=== PATIENT | female | born 1990 | race Caucasian/White ===

== ENCOUNTER 2017-07-21 17:30 | Inpatient (IN) | payer BC ==
[~2017-07-21] VITALS: Ht 152.4 cm; Wt 74.4 kg
[2017-07-21] MEDS ORDERED: OXYTOCIN/NORMAL SALINE 1,000 ML IV SCH (19:49)
[2017-07-21] MEDS ORDERED: LR 1,000 ML IV ONE (19:49)
[2017-07-21] MEDS ORDERED: TERBUTALINE SULFATE 1 MG/ML VIAL SUBCUT ONE (20:00)
[2017-07-21] MEDS ORDERED: NALBUPHINE HCL 10 MG/ML AMP IVP PRN (20:00)
[2017-07-21 20:40] LABS: HEMOGLOBIN 13.1 g/dL (12.0-16.0)
[2017-07-21 20:48] LABS: HEMATOCRIT 38.8 % (36-48); MEAN CORPUSCULAR HEMOGLOBIN 31 pg (27-31); MEAN CORPUSCULAR HGB CONC 34 % (32-36); MEAN CORPUSCULAR VOLUME 90 fL (79.0-98.0); PLATELET COUNT (AUTO) 198 K/uL (130-430); RED CELL DISTRIBUTION WIDTH 11.6 % (9.0-15.0); WHITE BLOOD COUNT (AUTO) 9.1 K/uL (4.8-10.8)
[2017-07-21 21:02] LABS: BAND % (MANUAL) 0 % (0-6); LYMPHOCYTES % (MANUAL) 12 % (20-46); MONOCYTES % (MANUAL) 4 % (0-11)
[2017-07-21 21:03] LABS: BASOPHILS % (MANUAL) 0 % (0-2); EOSINOPHILS % (MANUAL) 2 % (0-7)
[2017-07-21 21:46] VITALS: BP_SYST 122
[2017-07-21] MEDS: LR 1,000 ML IV SCH (22:27)
[2017-07-22] MEDS: LR 1,000 ML IV SCH (05:56)
[2017-07-22] MEDS ORDERED: FENT2mCg/mL-ROPIVA0.2%/NS EPID 150 ML EP ONE (10:45)
[2017-07-22] MEDS ORDERED: LR 500 ML IV ONE (11:29)
[2017-07-22] MEDS ORDERED: FENT2mCg/mL-ROPIVA0.2%/NS EPID 150 ML EP SCH (11:30)
[2017-07-22] MEDS ORDERED: ePHEDrine sulfate 50 MG/ML VIAL IVP PRN (11:30)
[2017-07-22] MEDS ORDERED: OXYTOCIN/NORMAL SALINE 1,000 ML IV ONE (18:17)
[2017-07-22] MEDS ORDERED: OXYTOCIN/NORMAL SALINE 1,000 ML IV SCH (18:17)
[2017-07-22] MEDS ORDERED: LANOLIN 7 GM OINT. TP PRN (18:30)
[2017-07-22] MEDS ORDERED: OXYCODONE/ACETAMINOPHEN 5-325 TABLET PO PRN ×2 (18:30)
[2017-07-22] MEDS ORDERED: MEASLES,MUMPS&RUBELLA VACC/PF 12500 UNIT/0.5 ML VIAL SUBQ PRN (18:30)
[2017-07-22] MEDS ORDERED: HYDROCORTISONE 0.5%, 28.35 GM TOPICAL CREAM TP PRN (18:30)
[2017-07-22] MEDS ORDERED: GLYCERIN/WITCH HAZEL (TUCKS PADS) TP PRN (18:30)
[2017-07-22] MEDS ORDERED: DERMOPLAST SPRAY TP PRN (18:30)
[2017-07-22] MEDS ORDERED: METHYLERGONOVINE MALEATE 0.2 MG TABLET PO PRN (18:30)
[2017-07-22] MEDS ORDERED: RHO(D) IMMUNE GLOBULIN/MALTOSE 1500 UNITS/1.3 ML (WINHRO) IM PRN (18:30)
[2017-07-22] MEDS ORDERED: SENNOSIDES/DOCUSATE SODIUM 1 TAB TABLET(SENOKOT-S) PO PRN (18:30)
[2017-07-22] MEDS ORDERED: TEMAZEPAM 15 MG CAPSULE PO PRN (21:00)
[2017-07-22] MEDS: IBUPROFEN 600 MG TABLET PO SCH (23:42)
[2017-07-23] MEDS: IBUPROFEN 600 MG TABLET PO SCH ×2 (05:21→17:16)
[2017-07-23] MEDS: DOCUSATE SODIUM 100 MG CAPSULE PO PRN (05:21)
[2017-07-23 06:32] LABS: BASOPHILS % (AUTO) 0.2 % (0.0-2.0); EOSINOPHILS # (AUTO) 0.1 K/uL (0.0-0.4); EOSINOPHILS % (AUTO) 0.9 % (0.0-4.0); HEMATOCRIT 31.3 % (36-48); HEMOGLOBIN 10.6 g/dL (12.0-16.0); LYMPHOCYTES # (AUTO) 1.5 K/uL (1.0-5.5); LYMPHOCYTES % (AUTO) 10.6 % (20.5-51.5); MEAN CORPUSCULAR HEMOGLOBIN 31 pg (27-31); MEAN CORPUSCULAR HGB CONC 34 % (32-36); MEAN CORPUSCULAR VOLUME 91 fL (79.0-98.0); MONOCYTES # (AUTO) 0.9 K/uL (0.0-1.0); MONOCYTES % (AUTO) 6.4 % (1.7-9.3); NEUTROPHILS # (AUTO) 12.1 K/uL (1.8-7.7); PLATELET COUNT (AUTO) 171 K/uL (130-430); RED BLOOD CELL COUNT(AUTO) 3.45 MIL/uL (4.2-6.2); RED CELL DISTRIBUTION WIDTH 12.2 % (9.0-15.0); WHITE BLOOD COUNT (AUTO) 14.6 K/uL (4.8-10.8)
[2017-07-23 12:01] LABS: NEUTROPHILS % (AUTO) 81.9 % (40.0-70.0)
[2017-07-23] MEDS: ANUSOL 1 EA SUPP.RECT (PREPARATION H) RC PRN (20:53)
[2017-07-24] MEDS: IBUPROFEN 600 MG TABLET PO SCH ×5 (00:14→23:14)
[2017-07-24] MEDS: DOCUSATE SODIUM 100 MG CAPSULE PO PRN ×2 (06:50→17:40)
[2017-07-24] MEDS: ANUSOL 1 EA SUPP.RECT (PREPARATION H) RC PRN ×2 (06:55→17:40)
[2017-07-24] MEDS ORDERED: MINERAL OIL 30 ML UDC PO ONE (23:21)
== END 2017-07-24 23:22 | disposition home or self-care (01) | DRG 775 ==
LOC: SPU 17:30 → OBSVTOIN 19:50
PROVIDERS: ADMIT Obstetrics & Gynecology; ATTEND Obstetrics & Gynecology
PROC: 10907ZC Drainage of Amniotic Fluid, Therapeutic from Products of Conception, Via Natural or Artificial Opening (ICD-10-PCS; principal; 2017-07-21)
PROC: 10E0XZZ Delivery of Products of Conception, External Approach (ICD-10-PCS; 2017-07-21)
PROC: 0KQM0ZZ Repair Perineum Muscle, Open Approach (ICD-10-PCS; 2017-07-21)
PROC: 3E0R3BZ Introduction of Anesthetic Agent into Spinal Canal, Percutaneous Approach (ICD-10-PCS; 2017-07-21)
PROC: 00HU33Z Insertion of Infusion Device into Spinal Canal, Percutaneous Approach (ICD-10-PCS; 2017-07-21)
PROC: 3E0P3VZ Introduction of Hormone into Female Reproductive, Percutaneous Approach (ICD-10-PCS; 2017-07-21)
DX: O69.81X0 Labor and delivery complicated by cord around neck, without compression, not applicable or unspecified (principal); O70.1 Second degree perineal laceration during delivery; Z3A.38 38 weeks gestation of pregnancy; Z37.0 Single live birth
CPT/HCPCS: 36415; 76815; 81002-TC; 85007; 85025; 85027; 86592; 86886; 86900; 86901; G0378; J2300; J2590; J3010; J7120

== ENCOUNTER 2019-03-15 16:09 | Inpatient (IN) | payer BC ==
[~2019-03-15] VITALS: Ht 152.4 cm; Wt 78.9 kg
[2019-03-15] MEDS ORDERED: OXYTOCIN/0.9 % SODIUM CHLORIDE 1,000 ML IV SCH ×2 (16:46→18:48)
[2019-03-15] MEDS ORDERED: LR 1,000 ML IV ONE (16:46)
[2019-03-15] MEDS ORDERED: NALBUPHINE HCL 10 MG/ML AMP IVP PRN (17:00)
[2019-03-15] MEDS ORDERED: TERBUTALINE SULFATE 1 MG/ML VIAL SUBCUT ONE (17:00)
[2019-03-15] MEDS: LR 1,000 ML IV SCH ×3 (17:00→20:54)
[2019-03-15] MEDS ORDERED: FENT2mCg/mL-ROPIVA0.2%/NS EPID 150 ML EP SCH (17:30)
[2019-03-15 17:32] LABS: BASOPHILS # (AUTO) 0.1 K/uL (0.0-0.2); BASOPHILS % (AUTO) 1.1 % (0.0-2.0); EOSINOPHILS # (AUTO) 0.1 K/uL (0.0-0.4); EOSINOPHILS % (AUTO) 0.9 % (0.0-4.0); HEMATOCRIT 37.2 % (36-48); HEMOGLOBIN 12.7 g/dL (12.0-16.0); LYMPHOCYTES # (AUTO) 1.5 K/uL (1.0-5.5); LYMPHOCYTES % (AUTO) 18.2 % (20.5-51.5); MEAN CORPUSCULAR HEMOGLOBIN 30 pg (27-31); MEAN CORPUSCULAR HGB CONC 34 % (32-36); MEAN CORPUSCULAR VOLUME 89 fL (79.0-98.0); MONOCYTES # (AUTO) 0.7 K/uL (0.0-1.0); MONOCYTES % (AUTO) 8.5 % (1.7-9.3); NEUTROPHILS # (AUTO) 5.9 K/uL (1.8-7.7); NEUTROPHILS % (AUTO) 71.3 % (40.0-70.0); PLATELET COUNT (AUTO) 214 K/uL (130-430); RED BLOOD CELL COUNT(AUTO) 4.19 MIL/uL (4.2-6.2); RED CELL DISTRIBUTION WIDTH 12.9 % (9.0-15.0); WHITE BLOOD COUNT (AUTO) 8.3 K/uL (4.8-10.8)
[2019-03-15] MEDS ORDERED: ROPIVACAINE 0.2% 100 ML ONE (17:36)
[2019-03-15] MEDS ORDERED: fentaNYL CITRATE/PF 100 MCG/2 ML AMP ONE (17:36)
[2019-03-15 20:03] VITALS: BP_SYST 93
[2019-03-15] MEDS ORDERED: ePHEDrine sulfate 50 MG/ML VIAL IVP ONE (20:30)
[2019-03-16] MEDS ORDERED: OXYTOCIN 10 UNIT/ML VIAL IV ONE (01:47)
[2019-03-16] MEDS ORDERED: OXYTOCIN 10 UNIT/ML VIAL ONE (01:47)
[2019-03-16] MEDS ORDERED: ROPIVACAINE 0.2% 100 ML ONE (01:58)
[2019-03-16] MEDS: ONDANSETRON HCL 4 MG/2 ML VIAL IVP PRN ×2 (03:54→07:46)
[2019-03-16] MEDS ORDERED: OXYTOCIN/0.9 % SODIUM CHLORIDE 1,000 ML IV ONE (09:14)
[2019-03-16] MEDS ORDERED: HYDROCORTISONE 0.5%, 28.35 GM TOPICAL CREAM TP PRN (09:15)
[2019-03-16] MEDS ORDERED: HYDROcodone/ACETAMIN 5-325 MG TAB (NORCO/ VICODIN) PO PRN (09:15)
[2019-03-16] MEDS ORDERED: DERMOPLAST SPRAY TP PRN (09:15)
[2019-03-16] MEDS ORDERED: WITCH HAZEL LEAF 1 MED.PAD MED.PAD TP PRN (09:15)
[2019-03-16] MEDS ORDERED: DOCUSATE SODIUM 100 MG CAPSULE PO PRN (09:15)
[2019-03-16] MEDS ORDERED: ANUSOL 1 EA SUPP.RECT (PREPARATION H) RC PRN (09:15)
[2019-03-16] MEDS ORDERED: METHYLERGONOVINE MALEATE 0.2 MG TABLET PO PRN (09:15)
[2019-03-16] MEDS ORDERED: LANOLIN 7 GM OINT. TP PRN (09:15)
[2019-03-16] MEDS ORDERED: OXYTOCIN 10 UNIT/ML VIAL IM ONE (10:15)
[2019-03-16] MEDS: HYDROcodone/ACETAMIN 5-325 MG TAB (NORCO/ VICODIN) PO PRN ×2 (10:15→21:05)
[2019-03-16] MEDS: IBUPROFEN 600 MG TABLET PO SCH ×2 (12:15→17:34)
[2019-03-16] MEDS ORDERED: TEMAZEPAM 15 MG CAPSULE PO PRN (21:00)
[2019-03-17] MEDS: IBUPROFEN 600 MG TABLET PO SCH ×3 (06:00→12:23)
[2019-03-17 06:44] LABS: BASOPHILS % (AUTO) 0.3 % (0.0-2.0); EOSINOPHILS # (AUTO) 0.1 K/uL (0.0-0.4); EOSINOPHILS % (AUTO) 0.7 % (0.0-4.0); HEMATOCRIT 34.3 % (36-48); HEMOGLOBIN 11.5 g/dL (12.0-16.0); LYMPHOCYTES # (AUTO) 1.6 K/uL (1.0-5.5); LYMPHOCYTES % (AUTO) 13.9 % (20.5-51.5); MEAN CORPUSCULAR HEMOGLOBIN 30 pg (27-31); MEAN CORPUSCULAR HGB CONC 33 % (32-36); MEAN CORPUSCULAR VOLUME 90 fL (79.0-98.0); MONOCYTES # (AUTO) 0.8 K/uL (0.0-1.0); MONOCYTES % (AUTO) 7.3 % (1.7-9.3); NEUTROPHILS # (AUTO) 8.7 K/uL (1.8-7.7); NEUTROPHILS % (AUTO) 77.8 % (40.0-70.0); PLATELET COUNT (AUTO) 170 K/uL (130-430); RED CELL DISTRIBUTION WIDTH 12.7 % (9.0-15.0); WHITE BLOOD COUNT (AUTO) 11.2 K/uL (4.8-10.8)
[2019-03-17] MEDS ORDERED: ePHEDrine sulfate 50 MG/ML VIAL IM ONE (07:55)
[2019-03-17] MEDS ORDERED: NALOXONE HCL 0.4 MG/ML AMP (NARCAN) IVP ONE (07:55)
[2019-03-17] MEDS ORDERED: MINERAL OIL 30 ML UDC PO ONE (07:55)
[2019-03-17] MEDS ORDERED: LIDOCAINE 1% 10 MG/ML, 20 ML MDV IM ONE (07:55)
== END 2019-03-17 14:38 | disposition home or self-care (01) | DRG 807 ==
LOC: OBSVTOIN 16:09 → SPU 16:09
PROVIDERS: ADMIT Obstetrics & Gynecology; ATTEND Obstetrics & Gynecology
PROC: 10E0XZZ Delivery of Products of Conception, External Approach (ICD-10-PCS; principal; 2019-03-16)
PROC: 0KQM0ZZ Repair Perineum Muscle, Open Approach (ICD-10-PCS; 2019-03-16)
PROC: 3E0R3BZ Introduction of Anesthetic Agent into Spinal Canal, Percutaneous Approach (ICD-10-PCS; 2019-03-16)
PROC: 00HU33Z Insertion of Infusion Device into Spinal Canal, Percutaneous Approach (ICD-10-PCS; 2019-03-16)
DX: O69.81X0 Labor and delivery complicated by cord around neck, without compression, not applicable or unspecified (principal); Z37.0 Single live birth; O70.1 Second degree perineal laceration during delivery; Z3A.37 37 weeks gestation of pregnancy
CPT/HCPCS: 36415; 81002-TC; 85025; 86592; 86886; 86900; 86901; J2001; J2310; J2405; J2590; J2795; J3010; J7120